=== PATIENT | male | born 1990 | race Caucasian/White ===

== ENCOUNTER 2018-11-23 03:27 | Emergency (ER) | payer SELFPAY ==
[~2018-11-23] VITALS: Wt 75.9 kg
[2018-11-23 03:34] VITALS: BP 174/93; PULSE 82; RESP 18
--- NOTE | 2018-11-23 04:00 | ERD ---
ER Documentation Chief Complaint Chief Complaint PT STATES HE HAS SOB WHEN SLEEPING HPI This is a 28-year-old male who presents emergency department with complaints of shortness of breath while he was sleeping. He also stated that he has coughing for the last few days. Denies headache, head injury, loss of consciousness, dizziness, neck pain, neck stiffness, throat pain, difficulty swallowing, difficulty breathing lying flat, shoulder pain, chest pain, back pain, abdominal pain, nausea, vomiting, constipation, diarrhea, urinary symptoms, loss of bowel and bladder control, trauma, injury, falls, difficulty walking due to pain, numbness or tingling sensation, calf pain, recent travel, recent major surgery in the last 3 weeks, calf pain, recent long travel, recent exposure to any illness, recent antibiotic use in the last 3 months, fever, chills, seizures. Past medical history: Surgical history: Social: Denies smoking, use of alcoholic beverages, use of illegal drugs. ROS All systems reviewed and are negative except as per history of present illness. Medications Home Meds Active Scripts Benzonatate* (Tessalon Perle*) 100 Mg Capsule, 100 MG PO Q8H PRN for COUGH, #15 CAP Prov:PASILABAN,KLAR F 11/23/18 Ibuprofen* (Motrin*) 800 Mg Tab, 800 MG PO Q6H PRN for PAIN AND OR ELEVATED TEMP, #30 TAB Prov:LIBIA HUNT F 11/23/18 Physical Exam Vitals Physical Exam Const: No acute distress Head: Atraumatic Eyes: Normal Conjunctiva ENT: Normal External Ears, Nose and Mouth. Neck: Full range of motion. No meningismus. Resp: Clear to auscultation bilaterally Cardio: Regular rate and rhythm, no murmurs Abd: Soft, non tender, non distended. Normal bowel sounds Skin: No petechiae or rashes Back: No midline or flank tenderness Ext: No cyanosis, or edema Neur: Awake and alert Psych: Normal Mood and Affect Procedures/MDM Diagnostic tests: EKG: Normal sinus rhythm with a ventricular rate of 76 bpm. Treatment: NA. Re-evaluation: Denies chest pain. No shortness of breath. Differential diagnosis I have low suspicion for acute myocardial infarction, pulmonary embolism, sepsis. Final diagnosis: Viral upper respiratory infection. Prescription: Tessalon Perles. Motrin. Follow-up with PCP in the next 24-48 hours. Come back here in the emergency department for any new symptoms or any worsening symptoms. All questions and concerns were answered. Patient and family members verbalized understanding and agreed with plan of care. Hemodynamically stable on discharge. Departure Diagnosis: Primary Impression: Shortness of breath Additional Impression: Viral upper respiratory infection Condition: Stable Additional Instructions: Follow-up with PCP in the next 24-48 hours. Come back here in the emergency department for any new symptoms or any worsening symptoms. LIBIA HUNT Nov 23, 2018 04:00
[2018-11-23] MEDS ORDERED: BENZ-6 PO (04:11)
[2018-11-23] MEDS ORDERED: IBUP800T48 PO (04:11)
== END 2018-11-23 05:01 | disposition home or self-care (01) ==
LOC: FTE 03:27
DX: J06.9 Acute upper respiratory infection, unspecified (principal)
CPT/HCPCS: 93005